=== PATIENT | male | born 1935 | race Caucasian/White ===

== ENCOUNTER → 2020-10-04 | Outpatient (CLI) | payer OTHER ==
[~2020-10-04] MED LIST: ASA81BEC PO; BRILINTA90 MG PO; CALCIUM 600 +1 EAC1 PO; DAILY VALUE1 EAC1 PO; FISH OIL 1,0001 EAC9 PO; GLUCOSAMINE H1500 MG PO; KLOR-CON M2020 MEQ PO; LASIX 20 MG TAB20 MG PO; LIPITOR40 MG PO; METAMUCIL660 GM PO; MIRALAX119 GM PO; NEURONTIN 300M300 M2 PO; NITROSTAT0.4 M1 SUBLING; NORCO 10-325 T1 EACH PO; PACERONE100 MG PO; PREVACID30 MG PO; TOPROL XL25 MG PO; ZYNCOL30 M1 PO
== END ==
LOC: M.PC 11:02
PROVIDERS: ATTEND Physical Medicine & Rehabilitation
DX: M54.5 Low back pain (principal); M79.605 Pain in left leg; M79.604 Pain in right leg; I10 Essential (primary) hypertension; I25.10 Atherosclerotic heart disease of native coronary artery without angina pectoris; Z96.698 Presence of other orthopedic joint implants; Z95.0 Presence of cardiac pacemaker; Z79.891 Long term (current) use of opiate analgesic; Z79.899 Other long term (current) drug therapy